=== PATIENT | male | born 1960 | race African-American/Black ===

== ENCOUNTER 2020-06-04 13:22 | Inpatient (IN) | payer OTHER, SELFPAY ==
[~2020-06-04 13:22] MED LIST: Iopamidol-370 76% 500 ML 1 ML ONE
[2020-06-04] MEDS ORDERED: Boostrix 0.5 ML (Tdap) VIAL ONE (13:36)
[2020-06-04 13:46] LABS: #Basophils 0.2 thou/uL (0.0-0.2); #Eosinphils 0.5 thou/uL (0.0-0.7); #Lymphocytes 4.9 thou/uL (1.20-3.40); #Monocytes 0.6 thou/uL (0.11-0.59); #Neutrophils 3.8 thou/uL (1.40-6.50); %Basophils 1.5 % (0.0-1.0); %Eosinophils 4.7 % (0.0-10.0); %Lymphocytes 49.8 % (21.0-51.0); %Monocytes 5.7 % (0.0-10.0); %Neutrophils 38.4 % (42.0-75.0); Mean Corpuscular HGB CONC 31.3 g/dL (32.0-36.0); Mean Corpuscular Hemoglobin 31.5 pg (27.0-31.0); Mean Platelet Volume 9.8 fL (7.4-10.4); Platelet Count 149 thou/uL (130-400); RBC Distribution Width 11.3 % (11.5-14.5); Red Blood Cell (RBC) Count 5.08 mill/uL (4.70-6.10); White Blood Cell (WBC) Count 9.8 thou/uL (4.8-10.8)
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
[2020-06-04] MEDS ORDERED: Fentanyl 100 MCG/2 ML VIAL ONE (14:00)
[2020-06-04 14:06] LABS: ALT (SGPT) 61 U/L (8-55); AST (SGOT) 65 U/L (5-34); Albumin 4.2 g/dL (3.4-4.8); Alkaline Phosphatase 58 U/L (40-110); Anion Gap 16 mmol/L (10-20); BUN (Urea Nitrogen) 11 mg/dL (8.4-25.7); Bilirubin, Total 0.3 mg/dL (0.2-1.2); CK (CPK) 442 U/L (30-200); Calc. Creatinine Clearance 0 mL/min (70-130); Calcium 8.5 mg/dL (7.8-10.44); Carbon Dioxide 27 mmol/L (23-31); Chloride 102 mmol/L (98-107); Globulin 4.2 g/dL (2.4-3.5); Glucose 113 mg/dL (80-115); Lipase 24 U/L (8-78); Potassium 4.3 mmol/L (3.5-5.1); Protein, Total 8.4 g/dL (5.8-8.1); Sodium 141 mmol/L (136-145)
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
[2020-06-04 15:12] LABS: SARS-CoV-2 NAA Rapid Test Not Detected (NotDetected)
[2020-06-04] MEDS ORDERED: hydrALAZINE 20 MG/ML VIAL SLOW IVP PRN (15:24)
[2020-06-04] MEDS ORDERED: Dextrose 50% Abboject 50 ML SYRINGE SLOW IVP PRN (15:24)
[2020-06-04] MEDS ORDERED: Morphine 2 MG/ML VIAL SLOW IVP PRN (15:24)
[2020-06-04] MEDS ORDERED: Dextrose 5% in Water 1,000 ML IV PRN (15:24)
[2020-06-04] MEDS ORDERED: Ondansetron PF 4 MG/2 ML Vial IVP PRN (15:24)
[2020-06-04] MEDS ORDERED: Morphine 4 MG/ML VIAL SLOW IVP PRN ×2 (15:24→19:26)
[2020-06-04] MEDS ORDERED: Bacitracin 1 PK ONE (15:29)
[2020-06-04] MEDS ORDERED: Sodium Chloride 0.9% 1,000 ML IV SCH (15:30)
[2020-06-04] MEDS ORDERED: Cyclobenzaprine 10 MG TAB PO PRN (15:58)
[2020-06-04] MEDS: Sodium Chloride 0.9% 1,000 ML IV SCH ×2 (16:00→23:41)
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
[2020-06-04 16:39] LABS: Phosphorus 2.4 mg/dL (2.3-4.7)
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
[2020-06-04 17:59] LABS: Bacteria/HPF None Seen HPF (None Seen); Bilirubin Negative (Negative); Blood, Urine Trace (Negative); Clarity Clear (Clear); Glucose, Urine (Dipstick) Normal (Negative); Ketone, Urine Negative (Negative); Leukocyte Negative Leu/uL (Negative); Nitrite Negative (Negative); Protein, Urine (Dipstick) Negative (Neg-Trace); RBC/HPF 0-3 HPF (0-3); Specific Gravity, Urine 1.039 (1.002-1.036); Squamous Epithelial None Seen HPF (0-3); Urobilinogen Normal mg/dL (Less than 2); WBC/HPF 0-3 HPF (0-3)
[2020-06-04] MEDS ORDERED: FLU VACC QS2020-21(6MOS UP)/PF 60 MCG/0.5 ML SYRINGE IM ONE (18:00)
[2020-06-04 18:09] LABS: Sperm/HPF Rare HPF (None Seen)
[2020-06-04 19:07] LABS: Hemoglobin 14.3 g/dL (14.0-18.0); Mean Corpuscular Hemoglobin 33.3 pg (27.0-31.0); Mean Platelet Volume 9.7 fL (7.4-10.4); Platelet Count 115 thou/uL (130-400); RBC Distribution Width 11.3 % (11.5-14.5); Red Blood Cell (RBC) Count 4.31 mill/uL (4.70-6.10); White Blood Cell (WBC) Count 15.6 thou/uL (4.8-10.8)
[2020-06-04 19:14] LABS: Anion Gap 17 mmol/L (10-20); BUN (Urea Nitrogen) 10 mg/dL (8.4-25.7); CK (CPK) 650 U/L (30-200); Calc. Creatinine Clearance 117 mL/min (70-130); Calcium 7.8 mg/dL (7.8-10.44); Carbon Dioxide 25 mmol/L (23-31); Chloride 104 mmol/L (98-107); Glucose 135 mg/dL (80-115); Lactic Acid 4.8 mmol/L (0.5-2.2); Potassium 3.8 mmol/L (3.5-5.1); Sodium 142 mmol/L (136-145)
[2020-06-04] MEDS ORDERED: traMADol HCl 50 MG TAB ONE (19:36)
[2020-06-04] MEDS: Acetaminophen 500 MG TAB PO SCH ×2 (19:36→23:40)
[2020-06-04] MEDS: Ketorolac Tromethamine 30 MG/ML VIAL IVP SCH (19:37)
[2020-06-04] MEDS ORDERED: Ketorolac Tromethamine 30 MG/ML VIAL ONE ×2 (19:37→23:34)
[2020-06-04] MEDS ORDERED: Acetaminophen 500 MG TAB ONE ×2 (19:37→23:34)
[2020-06-04] MEDS: traMADol HCl 50 MG TAB PO SCH (19:37)
[2020-06-04] MEDS: Famotidine/PF 20 mg/2ml Vial SLOW IVP SCH (23:40)
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
[2020-06-05] MEDS: Ketorolac Tromethamine 30 MG/ML VIAL IVP SCH ×5 (00:10→23:47)
[2020-06-05] MEDS: Gabapentin 300 MG CAP PO SCH ×4 (00:14→22:09)
[2020-06-05] MEDS: Senokot S 8.6-50 MG TAB PO SCH ×3 (00:15→22:27)
[2020-06-05] MEDS: traMADol HCl 50 MG TAB PO SCH ×5 (01:36→23:46)
[2020-06-05] MEDS ORDERED: Acetaminophen 500 MG TAB ONE (05:19)
[2020-06-05] MEDS ORDERED: Ketorolac Tromethamine 30 MG/ML VIAL ONE ×2 (05:19→15:52)
[2020-06-05 05:27] LABS: #Eosinphils 0.1 thou/uL (0.0-0.7); #Lymphocytes 1.9 thou/uL (1.20-3.40); #Monocytes 0.7 thou/uL (0.11-0.59); #Neutrophils 9.7 thou/uL (1.40-6.50); %Basophils 0.1 % (0.0-1.0); %Eosinophils 0.5 % (0.0-10.0); %Lymphocytes 15.5 % (21.0-51.0); %Monocytes 5.6 % (0.0-10.0); %Neutrophils 78.3 % (42.0-75.0); Hemoglobin 13.9 g/dL (14.0-18.0); Mean Corpuscular HGB CONC 31.5 g/dL (32.0-36.0); Mean Corpuscular Hemoglobin 31.9 pg (27.0-31.0); Mean Platelet Volume 10.1 fL (7.4-10.4); Platelet Count 98 thou/uL (130-400); RBC Distribution Width 11.3 % (11.5-14.5); Red Blood Cell (RBC) Count 4.36 mill/uL (4.70-6.10); White Blood Cell (WBC) Count 12.4 thou/uL (4.8-10.8)
[2020-06-05 05:30] LABS: Prothrombin Time 13.4 sec (12.0-14.7)
[2020-06-05 05:35] LABS: Lactic Acid 1.5 mmol/L (0.5-2.2)
[2020-06-05] MEDS: Sodium Chloride 0.9% 1,000 ML IV SCH ×3 (05:35→23:45)
[2020-06-05] MEDS: Acetaminophen 500 MG TAB PO SCH ×3 (05:36→23:46)
[2020-06-05 05:45] LABS: Troponin I 0.018 ng/mL (< 0.028)
[2020-06-05 06:33] LABS: Anion Gap 17 mmol/L (10-20); BUN (Urea Nitrogen) 10 mg/dL (8.4-25.7); CK (CPK) 1741 U/L (30-200); Calc. Creatinine Clearance 137 mL/min (70-130); Calcium 8.2 mg/dL (7.8-10.44); Carbon Dioxide 22 mmol/L (23-31); Chloride 106 mmol/L (98-107); Glucose 125 mg/dL (80-115); Magnesium 1.8 mg/dL (1.6-2.6); Potassium 5.4 mmol/L (3.5-5.1); Sodium 140 mmol/L (136-145)
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
[2020-06-05 06:52] LABS: Phosphorus 3.5 mg/dL (2.3-4.7)
[2020-06-05] MEDS ORDERED: Magnesium 2 GM/50 ML 2 GM in Premix Bag 1 BAG IVPB SCH (08:00)
[2020-06-05 08:24] LABS: Potassium 4.1 mmol/L (3.5-5.1)
[2020-06-05 08:41] LABS: PTT 29.5 sec (22.9-36.1); Prothrombin Time 13.5 sec (12.0-14.7)
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
[2020-06-05] MEDS ORDERED: Famotidine/PF 20 mg/2ml Vial ONE (09:18)
[2020-06-05] MEDS: Famotidine/PF 20 mg/2ml Vial SLOW IVP SCH ×2 (09:28→22:28)
[2020-06-05] MEDS: Polyethylene Glycol 3350 17 GM Packet PO SCH (09:29)
[2020-06-05] MEDS ORDERED: Fentanyl 100 MCG/2 ML VIAL ONE (12:54)
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
[2020-06-05 17:16] LABS: CKMB 21.9 ng/mL (0-6.6)
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
[2020-06-05] MEDS ORDERED: traMADol HCl 50 MG TAB ONE (19:46)
[2020-06-05] MEDS: Metoprolol Tartrate 25 MG TAB PO SCH (22:28)
[2020-06-06] MEDS: Sodium Chloride 0.9% 1,000 ML IV SCH ×4 (00:41→21:07)
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
[2020-06-06 04:10] LABS: #Basophils 0.1 thou/uL (0.0-0.2); #Eosinphils 0.4 thou/uL (0.0-0.7); #Lymphocytes 1.8 thou/uL (1.20-3.40); #Monocytes 0.7 thou/uL (0.11-0.59); %Basophils 0.5 % (0.0-1.0); %Eosinophils 3.5 % (0.0-10.0); %Lymphocytes 16.5 % (21.0-51.0); %Monocytes 6.5 % (0.0-10.0); Hemoglobin 12.5 g/dL (14.0-18.0); Mean Corpuscular HGB CONC 31.8 g/dL (32.0-36.0); Mean Corpuscular Hemoglobin 32.3 pg (27.0-31.0); Mean Platelet Volume 10.1 fL (7.4-10.4); Platelet Count 81 thou/uL (130-400); RBC Distribution Width 11.3 % (11.5-14.5); Red Blood Cell (RBC) Count 3.85 mill/uL (4.70-6.10); White Blood Cell (WBC) Count 10.9 thou/uL (4.8-10.8)
[2020-06-06 04:19] LABS: Anion Gap 10 mmol/L (10-20); BUN (Urea Nitrogen) 7 mg/dL (8.4-25.7); Calc. Creatinine Clearance 158 mL/min (70-130); Calcium 7.9 mg/dL (7.8-10.44); Carbon Dioxide 32 mmol/L (23-31); Chloride 102 mmol/L (98-107); Glucose 104 mg/dL (80-115); Phosphorus 3.2 mg/dL (2.3-4.7); Potassium 4.1 mmol/L (3.5-5.1); Sodium 140 mmol/L (136-145)
[2020-06-06] MEDS: Ketorolac Tromethamine 30 MG/ML VIAL IVP SCH ×3 (05:14→18:40)
[2020-06-06] MEDS: Acetaminophen 500 MG TAB PO SCH ×3 (05:15→18:45)
[2020-06-06] MEDS: traMADol HCl 50 MG TAB PO SCH ×3 (05:16→18:47)
[2020-06-06] MEDS ORDERED: Sodium Chloride 0.9% (PF) 10 ML VIAL FS PRN (08:15)
[2020-06-06] MEDS: Polyethylene Glycol 3350 17 GM Packet PO SCH (09:10)
[2020-06-06] MEDS: Senokot S 8.6-50 MG TAB PO SCH ×2 (09:10→21:07)
[2020-06-06] MEDS: Gabapentin 300 MG CAP PO SCH ×3 (09:13→21:16)
[2020-06-06] MEDS: Metoprolol Tartrate 25 MG TAB PO SCH ×2 (09:13→21:07)
[2020-06-06] MEDS: Pantoprazole 40 MG VIAL IVP SCH (09:16)
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
[2020-06-06] MEDS ORDERED: Lidocaine 1% PF 5 ML VIAL ONE (11:12)
[2020-06-06] MEDS ORDERED: PROPOFOL 200 MG/20 ML VIAL ONE (11:12)
[2020-06-06] MEDS ORDERED: Glycopyrrolate 0.2 MG/ML 5 ML SYRINGE ONE (11:12)
[2020-06-06] MEDS ORDERED: Succinylcholine 200 MG/10 ml SYRINGE FS ONE ×2 (11:12→20:00)
[2020-06-06] MEDS ORDERED: Rocuronium Bromide 10 MG/ML (10ML VIAL) ONE (11:12)
[2020-06-06] MEDS ORDERED: PHENYLEPHRINE-NS 100 MCG/ML 10 ML SYRINGE ONE (11:12)
[2020-06-06] MEDS ORDERED: ePHEDrine 50 MG/ML VIAL ONE (11:12)
[2020-06-06] MEDS ORDERED: Midazolam HCl 2 mg/2 ml Vial ONE ×2 (11:58→20:22)
[2020-06-06] MEDS ORDERED: Fentanyl 100 MCG/2 ML VIAL ONE ×2 (11:58→20:22)
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
[2020-06-06] MEDS ORDERED: Non-Formulary Medication 1 EACH PO PRN (16:47)
[2020-06-06] MEDS ORDERED: Naloxone HCl 0.4 mg/ml Vial ONE (16:58)
[2020-06-06] MEDS ORDERED: Ondansetron HCl/PF 4 MG/2 ML Vial IVP PRN (17:00)
[2020-06-06] MEDS ORDERED: Promethazine HCl 25 MG/ML VIAL IM/IV PRN (17:00)
[2020-06-06] MEDS ORDERED: Naloxone HCl 0.4 mg/ml Vial IV SCH (17:30)
[2020-06-06 17:32] LABS: Actual Bicarbonate (HCO3a) 31.6 mEq/L (22-28); Base Excess (BEa) 1.9 mEq/L (-2.0 to +3.0); Calcium, Ionized (arterial) 1.09 mmol/L (1.12-1.30); Carboxyhemoglobin (COHb) 1.3 gm% (0.0-3.0); Hemoglobin (Hb) 12.6 g/dL (14.0-18.0); O2 Tension (PaO2), arterial 65.2 mmHg (> 80.0); Potassium - ABG Lab 4.09 mmol/L (3.70-5.30)
[2020-06-06 17:43] LABS: pH, Arterial 7.23 (7.35-7.45)
[2020-06-06 17:44] LABS: CO2 Tension 78.1 mmHg (35.0-45.0); Puncture Site LRA
[2020-06-06 17:45] LABS: ALV-art Gradient 122.375 mmHg (0-20)
[2020-06-06] MEDS ORDERED: Ketorolac Tromethamine 30 MG/ML VIAL ONE (18:17)
[2020-06-06] MEDS ORDERED: Acetaminophen 500 MG TAB ONE (18:44)
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
[2020-06-06 19:24] LABS: Actual Bicarbonate (HCO3a) 33.3 mEq/L (22-28); Base Excess (BEa) 2.7 mEq/L (-2.0 to +3.0); Carboxyhemoglobin (COHb) 0.9 gm% (0.0-3.0); Hemoglobin (Hb) 12.8 g/dL (14.0-18.0); O2 Tension (PaO2), arterial 78.6 mmHg (> 80.0); Potassium - ABG Lab 4.36 mmol/L (3.70-5.30)
[2020-06-06 19:28] LABS: Puncture Site LRA
[2020-06-06] MEDS ORDERED: PROPOFOL 20 ML ONE (19:44)
[2020-06-06] MEDS ORDERED: Ventilator Sedation Protocol 1 EACH FS SCH ×2 (19:45→20:17)
[2020-06-06] MEDS ORDERED: Calcium Chloride 13.6 MEQ in Sodium Chloride 0.9% 100 ML IVPB SCH (20:00)
[2020-06-06] MEDS ORDERED: Propofol 1,000 MG/100 ML VIAL IV ONE (20:17)
[2020-06-06 20:23] LABS: #Basophils 0.1 thou/uL (0.0-0.2); #Lymphocytes 0.5 thou/uL (1.20-3.40); #Monocytes 0.3 thou/uL (0.11-0.59); #Neutrophils 9.8 thou/uL (1.40-6.50); %Basophils 1.3 % (0.0-1.0); %Eosinophils 0.1 % (0.0-10.0); %Lymphocytes 4.9 % (21.0-51.0); %Neutrophils 90.6 % (42.0-75.0); Hemoglobin 11.7 g/dL (14.0-18.0); Mean Corpuscular HGB CONC 31.3 g/dL (32.0-36.0); Mean Corpuscular Hemoglobin 32.2 pg (27.0-31.0); Mean Platelet Volume 9.4 fL (7.4-10.4); Platelet Count 78 thou/uL (130-400); RBC Distribution Width 11.3 % (11.5-14.5); Red Blood Cell (RBC) Count 3.64 mill/uL (4.70-6.10); White Blood Cell (WBC) Count 10.8 thou/uL (4.8-10.8)
--- NOTE | 2020-06-06 20:26 | RAD ---
Exam: Chest one view HISTORY:Status post intubation. CO2 retention. Comparison: 06/06/2020 at 8:26 AM FINDINGS: Lines and tubes: Endotracheal tube just beyond the level of the clavicles. Nasogastric tube terminate s in the stomach. Cardiac silhouette: Normal Aorta: Unremarkable Pulmonary vessels: Normal Costophrenic angles: Small bilateral effusions. LUNGS: Scattered interstitial and alveolar opacities. The degree of opacification is unchanged. Pneumothorax: No pneumothorax on this supine projection. Osseous abnormalities: Stable left rib fractures. IMPRESSION: 1. Endotracheal and nasogastric tube as above. 2. Stable lung parenchymal opacification. Small bilateral effusions have developed since the previous exam. 3. Stable left rib fractures.
[2020-06-06 20:40] LABS: Phosphorus 3.8 mg/dL (2.3-4.7)
[2020-06-06 20:41] LABS: Anion Gap 13 mmol/L (10-20); BUN (Urea Nitrogen) 9 mg/dL (8.4-25.7); Calc. Creatinine Clearance 112 mL/min (70-130); Calcium 7.8 mg/dL (7.8-10.44); Carbon Dioxide 28 mmol/L (23-31); Chloride 100 mmol/L (98-107); Glucose 127 mg/dL (80-115); Magnesium 1.9 mg/dL (1.6-2.6); Potassium 5.4 mmol/L (3.5-5.1); Sodium 136 mmol/L (136-145)
[2020-06-06] MEDS ORDERED: Propofol 1,000 MG/100 ML VIAL IV PRN (20:45)
[2020-06-06] MEDS ORDERED: fentaNYL Citrate/PF 2,000 MCG in Sodium Chloride 0.9% 60 ML IV SCH (20:45)
[2020-06-06] MEDS ORDERED: Morphine 2 MG/ML VIAL SLOW IVP PRN (20:45)
[2020-06-06] MEDS ORDERED: DISCONTINUE PREVIOUS NARCOTIC PAIN MEDICATIONS AND BENZODIAZEPINES FS SCH (20:45)
[2020-06-06] MEDS ORDERED: Propofol BOLUS 1,000 MG/100 ML VIAL IV PRN (20:45)
[2020-06-06] MEDS ORDERED: Lorazepam 2 MG/ML VIAL SLOW IVP PRN (20:45)
[2020-06-06] MEDS ORDERED: Fentanyl BOLUS 250 ML IVPB PRN (20:45)
[2020-06-06 21:25] LABS: Actual Bicarbonate (HCO3a) 24.7 mEq/L (22-28); Base Excess (BEa) 2.9 mEq/L (-2.0 to +3.0); Calcium, Ionized (arterial) 1.04 mmol/L (1.12-1.30); Carboxyhemoglobin (COHb) 0.6 gm% (0.0-3.0); Hemoglobin (Hb) 11.5 g/dL (14.0-18.0); O2 Tension (PaO2), arterial 99.9 mmHg (> 80.0); Potassium - ABG Lab 4.48 mmol/L (3.70-5.30)
[2020-06-06 21:27] LABS: Puncture Site LRA; pH, Arterial 7.55 (7.35-7.45)
[2020-06-06] MEDS: CEFAZOLIN 2 GM in Premix Bag 1 BAG IVPB SCH (21:58)
[2020-06-06] MEDS ORDERED: Cyclobenzaprine 10 MG TAB PER TUBE PRN (22:18)
[2020-06-06] MEDS ORDERED: traMADol HCl 50 MG TAB ONE (23:49)
[2020-06-06] MEDS: Acetaminophen 500 MG TAB PER TUBE SCH (23:50)
[2020-06-06] MEDS: traMADol HCl 50 MG TAB PER TUBE SCH (23:52)
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
[2020-06-07] MEDS ORDERED: traMADol HCl 50 MG TAB ONE ×4 (04:56→12:45)
[2020-06-07] MEDS ORDERED: Acetaminophen 500 MG TAB ONE ×2 (04:56→12:38)
[2020-06-07] MEDS ORDERED: cefOXitin Sodium/Dextrose 2 GM/50 ML BAG ONE (05:25)
[2020-06-07] MEDS: Sodium Chloride 0.9% 1,000 ML IV SCH ×3 (05:31→15:07)
[2020-06-07] MEDS: Acetaminophen 500 MG TAB PER TUBE SCH ×4 (05:31→23:49)
[2020-06-07] MEDS: traMADol HCl 50 MG TAB PER TUBE SCH ×4 (05:32→23:50)
[2020-06-07] MEDS: CEFAZOLIN 2 GM in Premix Bag 1 BAG IVPB SCH (05:32)
--- NOTE | 2020-06-07 07:43 | RAD ---
Chest one view HISTORY: Dyspnea. Pneumothorax. Follow-up. COMPARISON: 06/06/2020. FINDINGS: Cardiac silhouette is magnified by projection. Pulmonary vasculature unremarkable. Mediastinum is midline. Lines and tubes unchanged in position. Hemidiaphragms are now with better visualized. Mild residual linear atelectasis. Pulmonary vasculature now not engorged. No evidence of pneumothorax. Left rib fractures. IMPRESSION : Improved aeration of the lungs. Mild residual atelectasis at the lung bases. No new abnormalities.
[2020-06-07] MEDS ORDERED: Propofol 1,000 MG/100 ML VIAL IV ONE (07:50)
--- NOTE | 2020-06-07 08:12 | ULT ---
ULTRASOUND DOPPLER DUPLEX VENOUS BILATERAL LOWER EXTREMITIES: DATE: 06/07/2020 HISTORY: 60-year-old male with bilateral lower extremity pain TECHNIQUE: Grayscale, color-flow, and spectral analysis, of major veins of bilateral lower extremities. FINDINGS: There is demonstration of blood flow with normal compressibility, of the bilateral common femoral, pr ofunda femoral, greater saphenous, femoral, popliteal, and posterior tibial, veins. IMPRESSION: Negative. No deep venous thrombosis of bilateral lower extremities.
[2020-06-07 08:28] LABS: #Monocytes 0.8 thou/uL (0.11-0.59); #Neutrophils 8.8 thou/uL (1.40-6.50); %Eosinophils 0.1 % (0.0-10.0); %Monocytes 7.3 % (0.0-10.0); %Neutrophils 83.6 % (42.0-75.0); Hemoglobin 10.1 g/dL (14.0-18.0); Mean Corpuscular HGB CONC 32.5 g/dL (32.0-36.0); Mean Corpuscular Hemoglobin 32.8 pg (27.0-31.0); Mean Platelet Volume 10.1 fL (7.4-10.4); Platelet Count 70 thou/uL (130-400); RBC Distribution Width 11.2 % (11.5-14.5); Red Blood Cell (RBC) Count 3.08 mill/uL (4.70-6.10); White Blood Cell (WBC) Count 10.6 thou/uL (4.8-10.8)
[2020-06-07 08:36] LABS: Anion Gap 14 mmol/L (10-20); BUN (Urea Nitrogen) 12 mg/dL (8.4-25.7); CK (CPK) 1643 U/L (30-200); Calc. Creatinine Clearance 134 mL/min (70-130); Calcium 7.9 mg/dL (7.8-10.44); Carbon Dioxide 26 mmol/L (23-31); Chloride 105 mmol/L (98-107); Glucose 110 mg/dL (80-115); Magnesium 1.8 mg/dL (1.6-2.6); Phosphorus 1.9 mg/dL (2.3-4.7); Potassium 3.9 mmol/L (3.5-5.1); Sodium 141 mmol/L (136-145)
[2020-06-07] MEDS: Gabapentin 300 MG CAP PO SCH ×3 (09:02→20:32)
[2020-06-07] MEDS: Polyethylene Glycol 3350 17 GM Packet PER TUBE SCH (09:03)
[2020-06-07] MEDS ORDERED: Potassium Phosphate 30 MMOL, Magnesium Sulfate 2 GM in Sodium Chloride 0.9% 250 ML 250 ML IVPB SCH (09:15)
[2020-06-07 09:25] LABS: Base Excess (BEa) 3.4 mEq/L (-2.0 to +3.0); CO2 Tension 32.7 mmHg (35.0-45.0); Calcium, Ionized (arterial) 1.07 mmol/L (1.12-1.30); Carboxyhemoglobin (COHb) 0.1 gm% (0.0-3.0); Hemoglobin (Hb) 11.3 g/dL (14.0-18.0); O2 Tension (PaO2), arterial 141.6 mmHg (> 80.0); Potassium - ABG Lab 3.75 mmol/L (3.70-5.30); Puncture Site LRA; pH, Arterial 7.52 (7.35-7.45)
[2020-06-07 09:27] LABS: ALV-art Gradient 102.725 mmHg (0-20)
[2020-06-07] MEDS: Pantoprazole 40 MG VIAL IVP SCH (09:30)
[2020-06-07] MEDS ORDERED: Sodium Chloride 0.9% 10 ML ONE (09:34)
[2020-06-07] MEDS: Senokot S 8.6-50 MG TAB PER TUBE SCH ×3 (12:26→20:32)
[2020-06-07] MEDS ORDERED: Gabapentin 300 MG CAP ONE (15:15)
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
[2020-06-08] MEDS: Sodium Chloride 0.9% 1,000 ML IV SCH (01:30)
[2020-06-08 05:39] LABS: #Basophils 0.1 thou/uL (0.0-0.2); #Eosinphils 0.3 thou/uL (0.0-0.7); #Lymphocytes 2.9 thou/uL (1.20-3.40); #Monocytes 1.2 thou/uL (0.11-0.59); %Basophils 0.4 % (0.0-1.0); %Eosinophils 2.2 % (0.0-10.0); %Lymphocytes 18.7 % (21.0-51.0); %Monocytes 7.8 % (0.0-10.0); %Neutrophils 70.9 % (42.0-75.0); Hemoglobin 11.6 g/dL (14.0-18.0); Mean Corpuscular HGB CONC 30.9 g/dL (32.0-36.0); Mean Corpuscular Hemoglobin 32.2 pg (27.0-31.0); Mean Platelet Volume 9.5 fL (7.4-10.4); Platelet Count 129 thou/uL (130-400); RBC Distribution Width 11.6 % (11.5-14.5); Red Blood Cell (RBC) Count 3.59 mill/uL (4.70-6.10); White Blood Cell (WBC) Count 15.5 thou/uL (4.8-10.8)
[2020-06-08] MEDS: Acetaminophen 500 MG TAB PER TUBE SCH ×4 (05:41→23:27)
[2020-06-08] MEDS: traMADol HCl 50 MG TAB PER TUBE SCH ×4 (05:41→23:26)
[2020-06-08 06:14] LABS: Anion Gap 11 mmol/L (10-20); BUN (Urea Nitrogen) 12 mg/dL (8.4-25.7); Calc. Creatinine Clearance 130 mL/min (70-130); Calcium 7.8 mg/dL (7.8-10.44); Carbon Dioxide 32 mmol/L (23-31); Chloride 103 mmol/L (98-107); Glucose 109 mg/dL (80-115); Magnesium 2.3 mg/dL (1.6-2.6); Phosphorus 4.1 mg/dL (2.3-4.7); Potassium 4.7 mmol/L (3.5-5.1); Sodium 141 mmol/L (136-145)
[2020-06-08] MEDS: Polyethylene Glycol 3350 17 GM Packet PER TUBE SCH (08:40)
[2020-06-08] MEDS: Gabapentin 300 MG CAP PO SCH ×3 (08:40→21:04)
[2020-06-08] MEDS: Senokot S 8.6-50 MG TAB PER TUBE SCH ×2 (08:40→21:04)
[2020-06-08] MEDS: Enoxaparin Sodium 40 MG/0.4 ML SYRINGE SC SCH (08:41)
[2020-06-08] MEDS: Pantoprazole 40 MG GRANULES PACKET PER TUBE SCH (08:41)
[2020-06-08] MEDS ORDERED: Furosemide 20 MG/2 ML VIAL SLOW IVP SCH (09:00)
[2020-06-08] MEDS ORDERED: Tamsulosin HCl 0.4 MG CAP PO SCH (10:30)
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
[2020-06-09] MEDS: Acetaminophen 500 MG TAB PER TUBE SCH ×4 (05:25→23:32)
[2020-06-09] MEDS: traMADol HCl 50 MG TAB PER TUBE SCH ×4 (05:25→23:32)
[2020-06-09] MEDS: Tamsulosin HCl 0.4 MG CAP PO SCH (09:48)
[2020-06-09] MEDS: Enoxaparin Sodium 40 MG/0.4 ML SYRINGE SC SCH (09:49)
[2020-06-09] MEDS: Pantoprazole 40 MG GRANULES PACKET PER TUBE SCH (09:49)
[2020-06-09] MEDS: Polyethylene Glycol 3350 17 GM Packet PER TUBE SCH (09:49)
[2020-06-09] MEDS: Senokot S 8.6-50 MG TAB PER TUBE SCH ×2 (09:49→20:57)
[2020-06-09] MEDS: Gabapentin 100 MG CAP PO SCH ×2 (14:40→20:57)
[2020-06-09] MEDS: Gabapentin 300 MG CAP PO SCH (17:52)
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
[2020-06-10] MEDS: Acetaminophen 500 MG TAB PER TUBE SCH ×4 (06:37→23:12)
[2020-06-10] MEDS: traMADol HCl 50 MG TAB PER TUBE SCH ×4 (06:37→23:13)
[2020-06-10] MEDS: Senokot S 8.6-50 MG TAB PER TUBE SCH ×3 (09:15→20:13)
[2020-06-10] MEDS: Pantoprazole 40 MG GRANULES PACKET PER TUBE SCH (09:16)
[2020-06-10] MEDS: Gabapentin 100 MG CAP PO SCH ×3 (09:16→20:12)
[2020-06-10] MEDS: Tamsulosin HCl 0.4 MG CAP PO SCH (09:16)
[2020-06-10] MEDS: Polyethylene Glycol 3350 17 GM Packet PER TUBE SCH (09:16)
[2020-06-10] MEDS: Enoxaparin Sodium 40 MG/0.4 ML SYRINGE SC SCH (09:17)
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
[2020-06-11] MEDS: Tamsulosin HCl 0.4 MG CAP PO SCH (08:19)
[2020-06-11] MEDS: Enoxaparin Sodium 40 MG/0.4 ML SYRINGE SC SCH (08:19)
[2020-06-11] MEDS: Gabapentin 100 MG CAP PO SCH ×3 (08:19→21:24)
[2020-06-11] MEDS: Senokot S 8.6-50 MG TAB PER TUBE SCH ×2 (08:19→21:24)
[2020-06-11] MEDS: Pantoprazole 40 MG GRANULES PACKET PER TUBE SCH (08:19)
[2020-06-11] MEDS: Polyethylene Glycol 3350 17 GM Packet PER TUBE SCH (08:20)
[2020-06-11] MEDS ORDERED: Acetaminophen/Codeine 30-300mg Tablet PO PRN (10:08)
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
[2020-06-11] MEDS: Acetaminophen 325 MG TAB PO SCH ×3 (15:03→23:57)
[2020-06-11] MEDS: traMADol HCl 50 MG TAB PER TUBE SCH (20:26)
[2020-06-11] MEDS: Acetaminophen 500 MG TAB PER TUBE SCH (20:26)
[2020-06-12] MEDS: Acetaminophen 325 MG TAB PO SCH ×4 (00:34→18:41)
[2020-06-12] MEDS: Gabapentin 100 MG CAP PO SCH ×3 (08:58→20:45)
[2020-06-12] MEDS: Senokot S 8.6-50 MG TAB PER TUBE SCH ×2 (08:59→20:45)
[2020-06-12] MEDS: Polyethylene Glycol 3350 17 GM Packet PER TUBE SCH (08:59)
[2020-06-12] MEDS: Tamsulosin HCl 0.4 MG CAP PO SCH (08:59)
[2020-06-12] MEDS: Enoxaparin Sodium 40 MG/0.4 ML SYRINGE SC SCH (09:00)
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
--- NOTE | 2020-06-12 14:24 | PRG ---
DATE OF SERVICE: 06/12/2020 SUBJECTIVE: Juan is a 60-year-old white male, postop day six for an open reduction and internal fixation of a pelvis fracture with sacral screw placement. He also had a pubis open reduction and internal fixation for stabilization. He is doing relatively well. He is comfortable and he has no complaints. He has been up ambulating in his room. OBJECTIVE: VITAL SIGNS: Temperature 93, pulse 75, respiratory rate 18, blood pressure is 118/79. GENERAL: He is alert and oriented to person, place, time, situation, responsive and appropriate with examiner. His incisions are clean. James are intact anteriorly in his vertical incision. IMPRESSION: A 60-year-old male postop day six for open reduction and internal fixation of hemipelvis widening with ORIF of the pubis and sacral screw stabilization posteriorly. PLAN: Continue current care. Disposition per Trauma Team. Job ID: [id number]
[2020-06-13] MEDS: Acetaminophen 325 MG TAB PO SCH ×5 (00:44→23:46)
[2020-06-13] MEDS: Acetaminophen/Codeine 30-300mg Tablet PO PRN ×2 (04:31→11:17)
[2020-06-13] MEDS: Senokot S 8.6-50 MG TAB PER TUBE SCH ×2 (08:58→21:04)
[2020-06-13] MEDS: Gabapentin 100 MG CAP PO SCH ×3 (08:58→21:04)
[2020-06-13] MEDS: Tamsulosin HCl 0.4 MG CAP PO SCH (08:58)
[2020-06-13] MEDS: Polyethylene Glycol 3350 17 GM Packet PER TUBE SCH (08:58)
[2020-06-13] MEDS: Enoxaparin Sodium 40 MG/0.4 ML SYRINGE SC SCH (08:58)
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
[2020-06-14] MEDS: Acetaminophen 325 MG TAB PO SCH ×4 (05:03→23:42)
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
[2020-06-14] MEDS: Tamsulosin HCl 0.4 MG CAP PO SCH (08:53)
[2020-06-14] MEDS: Polyethylene Glycol 3350 17 GM Packet PER TUBE SCH (08:53)
[2020-06-14] MEDS: Senokot S 8.6-50 MG TAB PER TUBE SCH ×2 (08:53→20:53)
[2020-06-14] MEDS: Gabapentin 100 MG CAP PO SCH ×3 (08:54→20:53)
[2020-06-14] MEDS: Enoxaparin Sodium 40 MG/0.4 ML SYRINGE SC SCH (08:54)
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
[2020-06-15] MEDS: Acetaminophen 325 MG TAB PO SCH ×3 (05:39→17:05)
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
[2020-06-15] MEDS: Enoxaparin Sodium 40 MG/0.4 ML SYRINGE SC SCH (08:06)
[2020-06-15] MEDS: Senokot S 8.6-50 MG TAB PER TUBE SCH ×2 (08:06→20:04)
[2020-06-15] MEDS: Gabapentin 100 MG CAP PO SCH ×3 (08:06→20:04)
[2020-06-15] MEDS: Tamsulosin HCl 0.4 MG CAP PO SCH (08:06)
[2020-06-15] MEDS: Polyethylene Glycol 3350 17 GM Packet PER TUBE SCH (08:07)
[2020-06-15 11:17] VITALS: BMI 34.0
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
[2020-06-16] MEDS: Acetaminophen 325 MG TAB PO SCH ×4 (01:04→18:46)
[2020-06-16] MEDS: Senokot S 8.6-50 MG TAB PER TUBE SCH ×2 (08:53→20:50)
[2020-06-16] MEDS: Tamsulosin HCl 0.4 MG CAP PO SCH (08:53)
[2020-06-16] MEDS: Enoxaparin Sodium 40 MG/0.4 ML SYRINGE SC SCH (08:53)
[2020-06-16] MEDS: Gabapentin 100 MG CAP PO SCH ×3 (08:53→20:50)
[2020-06-16] MEDS: Polyethylene Glycol 3350 17 GM Packet PER TUBE SCH (08:54)
[2020-06-17] MEDS: Acetaminophen 325 MG TAB PO SCH ×4 (00:08→18:07)
[2020-06-17] MEDS: Enoxaparin Sodium 30 MG/0.3 ML SYRINGE SC SCH ×4 (00:09→20:52)
[2020-06-17] MEDS: Polyethylene Glycol 3350 17 GM Packet PER TUBE SCH (09:14)
[2020-06-17] MEDS: Gabapentin 100 MG CAP PO SCH ×3 (09:15→20:53)
[2020-06-17] MEDS: Tamsulosin HCl 0.4 MG CAP PO SCH (09:15)
[2020-06-17] MEDS: Senokot S 8.6-50 MG TAB PER TUBE SCH ×2 (09:15→21:15)
--- NOTE | 2020-06-17 11:40 | EKG ---
Test Reason : Blood Pressure : / mmHG Vent. Rate : 068 BPM Atrial Rate : 068 BPM P-R Int : 140 ms QRS Dur : 086 ms QT Int : 428 ms P-R-T Axes : 075 055 186 degrees QTc Int : 455 ms Sinus rhythm with occasional Premature ventricular complexes Possible Left atrial enlargement Abnormal ECG Confirmed by URI SEQUEIRA M.D. ([id number]), editorial cartoonist SONIDO RAND ([id number]) on 06/17/2020 11:40:48 AM Referred By: Confirmed By:URI SEQUEIRA M.D.
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
[2020-06-18] MEDS: Acetaminophen 325 MG TAB PO SCH ×5 (00:51→23:53)
[2020-06-18] MEDS: Enoxaparin Sodium 30 MG/0.3 ML SYRINGE SC SCH ×2 (09:38→20:48)
[2020-06-18] MEDS: Tamsulosin HCl 0.4 MG CAP PO SCH (09:38)
[2020-06-18] MEDS: Senokot S 8.6-50 MG TAB PER TUBE SCH ×2 (09:38→20:48)
[2020-06-18] MEDS: Gabapentin 100 MG CAP PO SCH ×3 (09:38→20:49)
[2020-06-18] MEDS: Polyethylene Glycol 3350 17 GM Packet PER TUBE SCH (09:39)
[2020-06-19] MEDS: Acetaminophen 325 MG TAB PO SCH ×3 (05:09→18:00)
[2020-06-19] MEDS: Enoxaparin Sodium 30 MG/0.3 ML SYRINGE SC SCH ×3 (08:40→22:30)
[2020-06-19] MEDS: Gabapentin 100 MG CAP PO SCH ×3 (08:40→21:40)
[2020-06-19] MEDS: Tamsulosin HCl 0.4 MG CAP PO SCH (08:41)
[2020-06-19] MEDS: Senokot S 8.6-50 MG TAB PER TUBE SCH ×2 (08:41→21:39)
[2020-06-19] MEDS: Polyethylene Glycol 3350 17 GM Packet PER TUBE SCH (08:42)
--- NOTE | 2020-06-19 12:36 | PDOC.BPN ---
- Brief Progress Note Encounter Date: 06/19/20 Pt does not need CPAP at SNF. He was not on CPAP before hospitalization. He does need to be evaluated out patient for SAY to see if this is needed. I am afraid this will not happen due to lack of insurance and funding. Pt can be on Oxygen at night as needed.
[2020-06-20] MEDS: Acetaminophen 325 MG TAB PO SCH ×3 (06:13→12:36)
[2020-06-20 08:15] VITALS: TEMP 97.9
[2020-06-20] MEDS: Enoxaparin Sodium 30 MG/0.3 ML SYRINGE SC SCH (08:50)
[2020-06-20] MEDS: Polyethylene Glycol 3350 17 GM Packet PER TUBE SCH (08:51)
[2020-06-20] MEDS: Tamsulosin HCl 0.4 MG CAP PO SCH ×2 (08:51→12:32)
[2020-06-20] MEDS: Senokot S 8.6-50 MG TAB PER TUBE SCH (08:51)
[2020-06-20] MEDS: Gabapentin 100 MG CAP PO SCH ×2 (08:51→12:32)
[2020-06-20 12:08] VITALS: BP 106/60
== END 2020-06-20 16:01 | DRG 957 ==
LOC: ERS 13:22 → ERHOLD 14:19 → 2NO 06-05 19:03 → SURG A 06-06 15:05 → SURG B 06-07 16:37
PROVIDERS: ADMIT Surgery; ATTEND Surgery
PROC: 0T9B70Z Drainage of Bladder with Drainage Device, Via Natural or Artificial Opening (ICD-10-PCS; 2020-06-04)
PROC: 0QS204Z Reposition Right Pelvic Bone with Internal Fixation Device, Open Approach (ICD-10-PCS; principal; 2020-06-06)
PROC: 0QH134Z Insertion of Internal Fixation Device into Sacrum, Percutaneous Approach (ICD-10-PCS; 2020-06-06)
DX: S32.139A Unspecified Zone III fracture of sacrum, initial encounter for closed fracture (principal); J96.02 Acute respiratory failure with hypercapnia; S27.1XXA Traumatic hemothorax, initial encounter; S32.058A Other fracture of fifth lumbar vertebra, initial encounter for closed fracture; S22.42XA Multiple fractures of ribs, left side, initial encounter for closed fracture; S27.321A Contusion of lung, unilateral, initial encounter; S26.11XA Contusion of heart without hemopericardium, initial encounter; E87.2 Acidosis; S33.4XXA Traumatic rupture of symphysis pubis, initial encounter; Z20.822 Contact with and (suspected) exposure to COVID-19; V89.2XXA Person injured in unspecified motor-vehicle accident, traffic, initial encounter; I49.3 Ventricular premature depolarization; I49.1 Atrial premature depolarization; T79.6XXA Traumatic ischemia of muscle, initial encounter; I45.10 Unspecified right bundle-branch block; S40.812A Abrasion of left upper arm, initial encounter; S40.811A Abrasion of right upper arm, initial encounter; G47.33 Obstructive sleep apnea (adult) (pediatric); S82.832A Other fracture of upper and lower end of left fibula, initial encounter for closed fracture; E83.42 Hypomagnesemia; E83.39 Other disorders of phosphorus metabolism; E87.6 Hypokalemia
CPT/HCPCS: 36415; 36600; 51702; 70450; 71045; 71260; 72125; 72170; 72190; 74177; 76000; 80048; 80053; 81003; 81015; 82533; 82550; 82553; 82805; 83605; 83690; 83735; 84100; 84484; 85025; 85610; 85730; 86850; 86900; 86901; 90471; 90715; 93005; 93306; 93970; 94002; 94003; 94640; 94660; 96374; 96376; C1713; C1769; C9113; G0390; J0690; J0694; J1650; J1885; J1940; J2250; J2310; J2704; J3010; J3475; J3490; J7050; J7620; Q9967; S0028; U0002